=== PATIENT | female | born 1955 | race Hispanic/Latino ===

== ENCOUNTER → 2023-08-17 | Day surgery (SDC) | payer MEDICARE ==
[2023-08-13 09:48] LABS: BASOPHILS % 0.5 % (0.0-1.0); EOSINOPHILS # (AUTO) 0.2 (0.0-0.4); EOSINOPHILS % 2.9 % (0.0-6.0); HEMATOCRIT 36.9 % (34.2-44.1); HEMOGLOBIN 12.2 g/dL (12.0-16.0); LYMPHOCYTES # (AUTO) 2.7 (1.0-3.2); LYMPHOCYTES % 37.6 % (18.0-39.1); MEAN CORPUSCULAR HEMOGLOBIN 29.8 pg (28-32); MEAN CORPUSCULAR HGB CONC 33.1 g/dL (31-35); MEAN CORPUSCULAR VOLUME 90.2 fL (81-99); MONOCYTES # (AUTO) 0.5 (0.2-0.8); MONOCYTES % 7.3 % (4.4-11.3); NEUTROPHILS # (AUTO) 3.7 (2.1-6.9); NEUTROPHILS % 51.3 % (38.7-80.0); PLATELET COUNT 247 x10e3/uL (140-360); RED BLOOD COUNT 4.09 x10e6/uL (3.6-5.1); RED CELL DISTRIBUTION WIDTH 12.7 % (11.7-14.4); WHITE BLOOD COUNT 7.29 x10e3/uL (4.8-10.8)
[2023-08-13 10:12] LABS: ANION GAP 13.9 mmol/L (8-16); CALCIUM 8.6 mg/dL (8.4-10.2); CREATININE, SERUM 0.81 mg/dL (0.57-1.11); POTASSIUM 3.9 mmol/L (3.5-5.1)
[~2023-08-17] MED LIST: ACETAMINOPHEN 1000 MG/100 ML 100 ML IV ONE; BIOTIN800 MCG PO; COMBIGAN EYE DRO5 ML OP; CRESTOR10 MG PO; DETROL LA4 MG PO; FENTANYL CITRATE/PF 100MCG/2 ML INJ ONE; FISH OIL 1,0001 EAC7 PO; GLUCOSAMINE1000 MG PO; GYNE-LOTRIMIN45 GM TOP; INDERAL LA60 MG PO; KETOROLAC TROMETHAMINE 30 MG/ML VIAL ONE; LACTATED RINGER'S 1,000 ML ONE; LANSOPRAZOLE30 MG PO; LATANOPROST2.5 ML OP; LIDOCAINE HCL 2% LOCAL INJ 5 ML SDV VIAL INJ ONE; LORATADINE-D 21 EACH PO; LOSARTAN POTASS25 MG PO; METFORMIN HCL500 MG PO; MULTI-VITAMIN1 EACH PO; ONDANSETRON HCL INJ 2MG/ML 2ML 2 MG/ML VIAL ONE; PROPOFOL IV EMULSION 10 MG/ML 20 ML VIAL ONE; SEVOFLURANE INHAL SOLN 250 ML PEN BTL ONE
[2023-08-17 07:28] VITALS: TEMP 97.5
[2023-08-17 08:25] VITALS: BP 139/78; PULSE 65; RESP 17; O2SAT 97
== END | disposition home or self-care (01) ==
LOC: OR 06:20
PROVIDERS: ATTEND Specialist
DX: G56.03 Carpal tunnel syndrome, bilateral upper limbs (principal); E11.9 Type 2 diabetes mellitus without complications; I10 Essential (primary) hypertension; E78.5 Hyperlipidemia, unspecified; K21.9 Gastro-esophageal reflux disease without esophagitis; M06.9 Rheumatoid arthritis, unspecified; Z88.0 Allergy status to penicillin; Z01.810 Encounter for preprocedural cardiovascular examination; Z01.812 Encounter for preprocedural laboratory examination; Z01.818 Encounter for other preprocedural examination; Z79.84 Long term (current) use of oral hypoglycemic drugs; Z79.899 Other long term (current) drug therapy
CPT/HCPCS: 29848; 36415 ×2; 71046; 80048; 82948; 85025; 93005; J0131; J0690; J1885; J2001; J2405; J2704; J3010; J7121